=== PATIENT | male | born 1965 | race Caucasian/White ===

== ENCOUNTER 2021-07-18 08:49 | Emergency (ER) | payer BC ==
[2021-07-18] MEDS ORDERED: Bacitracin 1 PK ONE (09:52)
== END 2021-07-18 10:25 | disposition home or self-care (01) ==
LOC: ERS 08:49
DX: S00.81XA Abrasion of other part of head, initial encounter (principal); V57.5XXA Driver of pick-up truck or van injured in collision with fixed or stationary object in traffic accident, initial encounter
CPT/HCPCS: 70450; 72125; G0390